=== PATIENT | female | born 1990 | race Two or more races ===

== ENCOUNTER 2024-06-26 10:45 | Emergency (ER) | payer OTHER ==
[~2024-06-26] VITALS: Ht 160 cm; Wt 56.8 kg
[2024-06-26 10:48] VITALS: TEMP 98.4
[2024-06-26 11:37] LABS: BASOPHILS % (AUTO) 0.2 % (0.0-2.0); EOSINOPHILS % (AUTO) 2.6 % (1.0-6.0); HEMATOCRIT 36.9 % (36-46); HEMOGLOBIN 11.8 g/dL (12.0-16.0); LYMPHOCYTES # (AUTO) 2.4 K/uL (1.0-4.8); MEAN CORPUSCULAR HEMOGLOBIN 28.4 pg (26.0-34.0); MEAN CORPUSCULAR VOLUME 89 fL (80-100); MONOCYTES # (AUTO) 0.4 K/uL (0.1-1.0); MONOCYTES % (AUTO) 5.5 % (2.0-9.0); NEUTROPHILS # (AUTO) 4.4 K/uL (1.8-7.7); NEUTROPHILS % (AUTO) 59.7 % (40.0-70.0); PLATELET COUNT (AUTO) 264 K/uL (150-450); RED BLOOD CELL COUNT(AUTO) 4.15 MIL/uL (4.00-5.20); RED CELL DISTRIBUTION WIDTH 14.1 % (11.5-14.5); WHITE BLOOD COUNT (AUTO) 7.4 K/uL (4.5-11.0)
[2024-06-26 11:52] LABS: ANION GAP 7 mmol/L (8-16); CALCIUM, TOTAL 8.6 mg/dL (8.8-10.5); CARBON DIOXIDE 28 mmol/L (22-29); CHLORIDE 105 mmol/L (98-107); CREATININE 0.62 mg/dL (0.60-1.30); GLOMERULAR FILTR. RATE CALC > 60 mL/min (>60); GLUCOSE,RANDOM 72 mg/dL (70-110); POTASSIUM 3.6 mmol/L (3.5-5.1); SODIUM SERUM 140 mmol/L (136-145); UREA NITROGEN, BLOOD 7 mg/dL (7-18)
[2024-06-26 11:53] LABS: LIPASE 25 U/L (16-77)
[2024-06-26 12:42] LABS: APPEARANCE,URINE CLEAR (CLEAR); BILIRUBIN,URINE NEGATIVE (NEGATIVE); COLOR,URINE COLORLESS (YELLOW); GLUCOSE, URINE (UA) NEGATIVE (NEGATIVE); KETONES,URINE NEGATIVE (NEGATIVE); LEUKOCYTE ESTERASE ,URINE NEGATIVE (NEGATIVE); NITRATE,URINE NEGATIVE (NEGATIVE); OCCULT BLOOD,URINE NEGATIVE (NEGATIVE); PH,URINE 6.5 (5.0-8.0); PROTEIN,URINE NEGATIVE (NEGATIVE); SPECIFIC GRAVITIY, URINE 1.006 (1.003-1.030); UROBILINOGEN,URINE <=1.0 mg/dL (<=1.0)
[2024-06-26] MEDS: ONDANSETRON HCL 4 MG/2 ML VIAL IVP ONE (12:44)
[2024-06-26] MEDS: SODIUM CHLORIDE 0.9% 1,000 ML IV ONE (12:44)
[2024-06-26 12:48] LABS: PH,URINE DRUG SCREEN 6.5 (5.0-8.0)
[2024-06-26 12:59] LABS: AMPHET/METH SCREEN,URINE POSITIVE (NEGATIVE); BARBITURATE SCREEN, URINE NEGATIVE (NEGATIVE); BENZODIAZEPINES SCREEN,URINE NEGATIVE (NEGATIVE); CANNABINOID SCREEN,URINE NEGATIVE (NEGATIVE); COCAINE SCREEN,URINE NEGATIVE (NEGATIVE); METHADONE SCREEN, URINE NEGATIVE (NEGATIVE); OPIATE SCREEN,URINE NEGATIVE (NEGATIVE); PHENCYCLIDINE SCREEN,URINE NEGATIVE (NEGATIVE)
[2024-06-26 13:02] LABS: ALCOHOL, URINE DRUG SCREEN NEGATIVE (NEGATIVE)
[2024-06-26] MEDS ORDERED: ONDA-104 PO (14:21)
[2024-06-26 14:27] VITALS: BP 121/58; PULSE 68; RESP 18; O2SAT 100
== END 2024-06-26 14:35 | disposition home or self-care (01) ==
LOC: EMS 12:36
DX: F15.10 Other stimulant abuse, uncomplicated (principal); R11.2 Nausea with vomiting, unspecified; F17.210 Nicotine dependence, cigarettes, uncomplicated; F10.90 Alcohol use, unspecified, uncomplicated; Z90.49 Acquired absence of other specified parts of digestive tract; Z88.6 Allergy status to analgesic agent; Y90.9 Presence of alcohol in blood, level not specified
CPT/HCPCS: 99283; 96374; 96361; 80048; 81003; 83690; 84703; 85025; 36415; 80307; J2405; J7030